=== PATIENT | male | born 1995 | race Caucasian/White ===

== ENCOUNTER 2021-02-14 20:52 | Emergency (ER) | payer BC ==
--- NOTE | 2021-02-14 21:40 | EDM.PDOC ---
ED HPI GENERAL MEDICAL PROBLEM - General Chief Complaint: Upper Extremity Injury/Pain Stated Complaint: left arm pain Time Seen by Provider: 02/14/21 21:24 Source of Information: Reports: Patient History Limitations: Reports: No Limitations - History of Present Illness INITIAL COMMENTS - FREE TEXT/NARRATIVE: Patient fell onto left forearm while trying to climb over a fence. Mild scuff on forearm. Now has pain in forearm whenever he rotates the forearm. Denies any real changes to left hand/wrist/fingers/elbow/shoulder. Has abrasion left knee but cleansed it and bandaged himself and does not want evaluated for that. No other injury complaints. Left Arm Pain Score (Numeric/FACES): 3 - Related Data Allergies Allergy/AdvReac Type Severity Reaction Status Date / Time naproxen Allergy Rash Verified 02/14/21 21:18 Home Meds: Home Meds . [No Known Home Meds] 02/14/21 [History] Social & Family History - Tobacco Use Tobacco Use Status *Q: Never Tobacco User Second Hand Smoke Exposure: No - Caffeine Use Caffeine Use: Reports: Coffee - Recreational Drug Use Recreational Drug Use: No Review of Systems - Review of Systems Review Of Systems: See Below Constitutional: Reports: No Symptoms Eyes: Reports: No Symptoms Ears: Reports: No Symptoms Nose: Reports: No Symptoms Mouth/Throat: Reports: No Symptoms Respiratory: Reports: No Symptoms Cardiovascular: Reports: No Symptoms GI/Abdominal: Reports: No Symptoms Genitourinary: Reports: No Symptoms Musculoskeletal: Reports: Arm Pain, Other (left knee bruise/abrasion) Neurological: Reports: No Symptoms Psychiatric: Reports: No Symptoms ED EXAM, GENERAL - Physical Exam Exam: See Below Exam Limited By: No Limitations General Appearance: Alert, WD/WN, No Apparent Distress Eye Exam: Bilateral Eye: EOMI, PERRL Ears: Hearing Grossly Normal Nose: Normal Inspection Throat/Mouth: Normal Inspection, Normal Lips, Normal Voice Head: Atraumatic, Normocephalic Neck: Supple, Non-Tender Respiratory/Chest: No Respiratory Distress Peripheral Pulses: 2+: Radial (L) Extremities: Normal Capillary Refill, Other (Some tenderness noted left dorsal soft tissue with palpation. Also with rotation of forearm. Elbow/humerus/wrist/hand non-tender. No swelling/deformity. Minimal abrasion prox forearm). No: Increased Warmth, Mottled, Pallor, Redness Neurological: Alert, Oriented, Normal Cognition, Normal Gait, No Motor/Sensory Deficits Psychiatric: Normal Affect, Normal Mood Skin Exam: Warm, Dry, Intact, Normal Color Course - Vital Signs Last Recorded V/S: Last Vital Signs Temp 36.9 C 02/14/21 21:17 Pulse 76 02/14/21 21:17 Resp 20 02/14/21 21:17 BP 125/65 02/14/21 21:17 Pulse Ox 100 02/14/21 21:17 - Orders/Labs/Meds Orders: Active Orders 24 hr Category Date Time Status Forearm 2V Lt [CR] Stat Exams 02/14/21 21:04 Taken - Re-Assessments/Exams Free Text/Narrative Re-Assessment/Exam: 02/14/21 22:28 Xray of forearm performed and no obvious fracture noted. Suspect soft tissue inj ury/contusion. Precautions reviewed and KIRIT bandage applied to forearm. Departure - Departure Time of Disposition: 21:37 Disposition: Home, Self-Care 01 Condition: Good Clinical Impression: Contusion of left lower arm Qualifiers: Encounter type: initial encounter Qualified Code(s): S50.12XA - Contusion of left forearm, initial encounter - Discharge Information *PRESCRIPTION DRUG MONITORING PROGRAM REVIEWED*: Not Applicable *COPY OF PRESCRIPTION DRUG MONITORING REPORT IN PATIENT BRIANA: Not Applicable Referrals: PCP,None [Primary Care Provider] - Forms: ED Department Discharge Additional Instructions: Continue Tylenol for pain. Ice for comfort. Kirit wrap for support. Advance activity as tolerated. Get rechecked if you are still experiencing a lot of discomfort next week as we discussed. Sepsis Event Note (ED) - Evaluation Sepsis Screening Result: No Definite Risk - Focused Exam Vital Signs: Vital Signs Temp Pulse Resp BP Pulse Ox 02/14/21 21:17 36.9 C 76 20 125/65 100 - My Orders Last 24 Hours: My Active Orders 02/14/21 21:04 Forearm 2V Lt [CR] Stat - Assessment/Plan Last 24 Hours: My Active Orders 02/14/21 21:04 Forearm 2V Lt [CR] Stat
== END 2021-02-14 21:46 | disposition home or self-care (01) ==
LOC: LL.ED 20:52
DX: S50.12XA Contusion of left forearm, initial encounter (principal); Z88.5 Allergy status to narcotic agent; W17.89XA Other fall from one level to another, initial encounter
CPT/HCPCS: 73090-LT; 99283-25